=== PATIENT | male | born 1995 | race Caucasian/White ===

== ENCOUNTER 2020-03-07 21:37 | Outpatient (REF) | payer MEDICAID, SELFPAY ==
[2020-03-10 13:15] LABS: Patient Race White; SARS-CoV-2 RNA Undetected (Undetected); SARS-CoV-2 Specimen Source Nasal
== END 2020-03-07 21:57 ==
LOC: NCHCN 21:37
PROVIDERS: PCP Internal Medicine; Visit Provider Internal Medicine
DX: Z20.828 Contact with and (suspected) exposure to other viral communicable diseases (principal)
CPT/HCPCS: U0003

== ENCOUNTER 2020-08-09 09:53 | Outpatient (CLI) | payer MEDICAID, SELFPAY ==
--- NOTE | 2020-08-09 13:07 | DI.RAD_ITS ---
EXAM: XR HIP PELVIS ADULT BL CLINICAL HISTORY: BILAT HIP PAIN M25.559. TECHNIQUE: 2D digital imaging was performed. COMPARISON: No exams were available for comparison FINDINGS: BONES: No acute fracture is present. No bony destructive lesion is seen. JOINTS: No dislocation present. SOFT TISSUE: Normal. IMPRESSION: Unrmarkable radiographs of bilat hips. Unremarkable radiographs of the pelvis DATA REPOSITORY: RADIATION DOSE DELIVERED:
== END 2020-08-09 10:13 ==
PROVIDERS: PCP Internal Medicine; Visit Provider Internal Medicine
DX: M25.551 Pain in right hip (principal); M25.552 Pain in left hip
CPT/HCPCS: 73521

== ENCOUNTER 2021-02-16 22:28 | Emergency (ER) | payer MEDICAID, SELFPAY ==
--- NOTE | 2021-02-16 22:31 | ED.GENADUL_ITS ---
Discharge Plan Disposition Patient Disposition: HOME Condition: Good Discharge Details Clinical Impression: Dog bite of finger Primary Care Provider: Rosendo Cervantes ED Provider: Sohan Givens [place] Meds and New Rx's Prescriptions: New amoxicillin-pot clavulanate [Augmentin] 875-125 mg tablet 1 tab PO BID Qty: 6 RF: 0 Continued escitalopram oxalate 20 mg tablet 20 mg PO DAILY RF: 0 Discharge Instructions Instructions: Animal Bite (ED) Additional Instructions: X-ray is negative. Tetanus updated tonight. Antibiotic for 3 days for prophylaxis. Clean wound twice a day and keep covered until healed. Return to ED if increasing pain/redness/swelling/fever. Medical Decision Making X-ray was obtained and negative for fracture. Tetanus updated. Patient given dose of Augmentin and will continue for 3 days, but given superficiality of wound should be fine. Local wound care and keeping area covered discussed. Return to ED if evidence of worsening infection. HPI General Mode of arrival: ambulatory . Date/Time Provider Initiated Documentation: 02/16/21 22:31 . Limitations to Documentation: no limitations . Information obtained by: patient and RN notes reviewed . HPI Narrative: Patient presents to the ED with dog bite to his left ring finger. Injury occurred yesterday. Dog is up-to-date on all of its shots. 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 When he went to pet the dog he was bitten. Mostly scraped on the cuticle of his finger. There is some redness and drainage as well as pain. Patient otherwise without complaint. Patient last tetanus more than 5 years ago. Related Data Home Medications Medication Instructions Recorded Confirmed amoxicillin-pot clavulanate 1 tab PO BID #6 tab 02/16/21 [Augmentin] escitalopram oxalate 20 mg PO DAILY 02/16/21 02/16/21 Previous Rx's Medication Instructions Recorded amoxicillin-pot clavulanate 1 tab PO BID #6 tab 02/16/21 [Augmentin] Allergies Allergy/AdvReac Type Severity Reaction Status Date / Time Sulfa (Sulfonamide Allergy Severe Hives Unverified 02/16/21 22:34 Antibiotics) Review of Systems Narrative: As documented in HPI otherwise negative as below. Const: no fever Resp: no cough, SOB CV: no CP GI: no abdominal pain, nausea, vomiting, diarrhea Neuro: no headache PFSH Medical History No significant past medical history Surgical History No significant past surgical history Social History Smoking/Tobacco Use Status: Former Tobacco Use Smoking risk assessment performed?: Yes Alcohol Intake: current Alcohol Intake frequency: a few times a week Alcohol type: beer Drug use: Occasionally Substance use type: does not use Do you feel safe at home: Yes Do you feel safe in your relationship?: Yes Exam Narrative Exam Narrative: Const: WDWN male in NAD. HEENT: NC/AT. Normal facial exam. Eyes: Normal conjunctiva and sclera. Neck: Supple. Trachea midline. Lungs: Normal respiratory effort. Neuro: A+O x 3. Normal speech, mentation, gait. Cranial nerves II - XII grossly intact. No gross motor or sensory deficit. Ext: No C/C/E. Left ring finger with scrapes/wound to dorsal aspect along cuticle. Minimal subungal hematoma under proximal nail. Redness and swelling mild with some tenderness to the area. No wound on palmar side of finger. Skin: As above.
[2021-02-16 22:32] VITALS: BP 145/84; PULSE 85; RESP 20; TEMP 36.2; O2SAT 98
--- NOTE | 2021-02-16 22:45 | DI.RAD_ITS ---
Exam(s) XR FINGER LT RING EXAM: XR FINGER LT RING CLINICAL HISTORY: dog bite. TECHNIQUE: 2D digital imaging was performed. COMPARISON: None. FINDINGS: BONES: No acute fracture is present. No bony destructive lesion is seen. JOINTS: No dislocation present. SOFT TISSUE: Soft tissue swelling in region of nail bed. No foreign body. IMPRESSION: No evidence of acute fracture, dislocation, or subluxation. DATA REPOSITORY: RADIATION DOSE DELIVERED:
--- NOTE | 2021-02-16 23:32 | DI.VRAD_ITS ---
PROCEDURE INFORMATION: Exam: XR Left Finger(s) Exam date and time: 02/16/2021 10:46 PM Age: 26 years old Clinical indication: Other: Dog bite TECHNIQUE: Imaging protocol: XR Left fingers. Views: Minimum 2 views. COMPARISON: No relevant prior studies available. FINDINGS: Bones/joints: No fracture. No malalignment. Soft tissues: Unremarkable IMPRESSION: No acute findings. Dictated and Authenticated by: Zach nAgelo MD. Ordering:ESTEPHANIE Parry MD
[2021-02-16] MEDS: Amoxicillin 875/Clav. 125 TAB PO (23:56)
== END 2021-02-17 00:04 | disposition home or self-care (01) ==
PROVIDERS: Emergency Provider Emergency Medicine; PCP Internal Medicine
DX: S61.355A Open bite of left ring finger with damage to nail, initial encounter (principal); W54.0XXA Bitten by dog, initial encounter
CPT/HCPCS: 90471; 99283; 73140

== ENCOUNTER 2021-07-31 11:51 | Outpatient (REF) | payer OTHER, MEDICAID, SELFPAY ==
[2021-08-01 15:26] LABS: COVID-19 RT-PCR UVMMC Result Negative (Negative)
== END 2021-07-31 11:52 | disposition home or self-care (01) ==
LOC: LBN 11:51
PROVIDERS: PCP Internal Medicine; Visit Provider Nurse Practitioner Family
DX: J02.9 Acute pharyngitis, unspecified (principal); Z20.822 Contact with and (suspected) exposure to COVID-19
CPT/HCPCS: U0003

== ENCOUNTER 2021-08-25 23:21 | Outpatient (REF) | payer OTHER, MEDICAID, SELFPAY ==
[2021-08-25 20:51] LABS: Abs Immature Grans 0.01 10^3/uL (0.0-0.06); Absolute Basophil Count 0.05 10^3/uL (0.0-0.2); Absolute Lymphocyte Count 1.52 10^3/uL (1.2-3.4); Absolute Monocyte Count 0.96 10^3/uL (0.1-0.8); Basophils % 0.6; Eosinophils % 1.2; HCT 46.3 % (40.0-50.0); HGB 15.1 g/dL (13.5-17.5); Immature Grans % 0.1; Lymphocytes % 18.9; MCH 29.4 pg (27.0-33.0); MCHC 32.6 % (32.0-36.0); MCV 90 fL (80-95); MPV 9.5 fL (8.0-11.0); Monocytes % 11.9; Neutrophils % 67.3; Platelet Count 236 10^3/uL (130-400); RBC 5.14 10^6/uL (4.36-5.78); RDW 12.7 % (11.8-14.1); RDW-SD 41.6 fL; WBC 8.04 10^3/uL (4.4-10.8)
[2021-08-25 21:11] LABS: ALT 27 U/L (16-63); AST 24 U/L (15-37); Albumin 4.5 g/dL (3.4-5.0); Alkaline Phosphatase 54 U/L (46-116); BUN 13 mg/dL (7-18); Bilirubin, Total 0.6 mg/dL (0.2-1.0); Calcium 9.3 mg/dL (8.5-10.1); Chloride 101 mmol/L (98-107); Glucose 91 mg/dL (74-106); Potassium 3.8 mmol/L (3.5-5.1); Sodium 141 mmol/L (136-145)
[2021-08-25 21:18] LABS: Anion Gap 11.4 mmol/L (3-11); CO2 28.6 mmol/L (21.0-32.0)
== END 2021-08-25 23:22 | disposition home or self-care (01) ==
LOC: LBN 23:21
PROVIDERS: PCP Internal Medicine; Visit Provider Family Medicine
DX: J98.8 Other specified respiratory disorders (principal)
CPT/HCPCS: 80053; 85025

== ENCOUNTER 2022-10-25 01:47 | Outpatient (CLI) | payer OTHER, MEDICAID, SELFPAY ==
--- NOTE | 2022-10-25 | DI.RAD_ITS ---
Exam(s) XR FOOT RT COMPLETE EXAM: XR FOOT RT COMPLETE CLINICAL HISTORY: RT FOOT PAIN, M79.671. TECHNIQUE: 2D digital imaging was performed. COMPARISON: No exams were available for comparison FINDINGS: 3 views No evidence of fracture or diastasis of the Lisfranc joint. Mild hallux valgus noted. Some soft tis david swelling is noted medial to the head of the great toe metatarsal. No radiopaque foreign body. N o radiographic evidence of osteomyelitis. No obvious degenerative changes in the great toe metatarso phalangeal joint. No erosions at this level nor elsewhere in the foot. Bone density normal. No oss eous lesions. Accessory ossicle noted on the medial aspect of the foot adjacent to the navicular tuberosity. IMPRESSION: Hallux valgus. DATA REPOSITORY: RADIATION DOSE DELIVERED:
== END 2022-10-25 02:07 ==
LOC: DI 01:48
PROVIDERS: PCP Internal Medicine; Visit Provider Family Medicine
DX: M79.671 Pain in right foot; M20.11 Hallux valgus (acquired), right foot; M79.89 Other specified soft tissue disorders
CPT/HCPCS: 73630

== ENCOUNTER → 2023-02-06 01:04 | Outpatient (CLI) | payer OTHER, SELFPAY ==
--- NOTE | 2023-02-06 | DI.MRI_ITS ---
Exam(s) MR LOWER EXTREMITY RT WO EXAM: MR LOWER EXTREMITY RT WO CLINICAL HISTORY: CONTINUED PAIN, INFLAMMATION AROUND 1ST MTP JOINT, SPRAIN IN OCTOBER. TECHNIQUE: Multiplanar multisequence MRI was performed. CONTRAST MATERIAL: Noncontrast COMPARISON: Plain films 25 October 2022 FINDINGS: BONES/JOINTS: No evidence of fracture. Mild hallux valgus. Bony erosions seen at the medial 1st met atarsal head with some surrounding edema. Findings could be related to gout or possibly related to o n recent trauma. Small 1st MTP joint effusion. Remaining MTP joints unremarkable. Intertarsal tars al metatarsal joints are also unremarkable. MUSCULOTENDINOUS STRUCTURES: Visualized portion of the planar fascia is unremarkable. No tendon abno rmalities are identified. SOFT TISSUES: Apparent multiple metallic artifacts which may be related to minute metallic particles on the skin or possibly within the patient's socks. IMPRESSION: Erosion at the medial 1st metatarsal head, joint effusion and mild adjacent edema. Findings could be secondary to gout. Clinical correlation recommended. DATA REPOSITORY:
== END ==
PROVIDERS: PCP Internal Medicine; Visit Provider Podiatrist
DX: M89.8X7 Other specified disorders of bone, ankle and foot (principal)
CPT/HCPCS: 73718

== ENCOUNTER 2023-07-30 16:51 | Outpatient (REF) | payer OTHER, SELFPAY | END 2023-07-30 16:52 | disposition home or self-care (01) | LOC: LBN 16:51 | PROVIDERS: PCP Internal Medicine; Visit Provider Nurse Practitioner Family | DX: J02.9 Acute pharyngitis, unspecified (principal) | CPT/HCPCS: 87070 ==

== ENCOUNTER → 2023-09-20 15:17 | Outpatient (CLI) | payer OTHER, SELFPAY ==
--- NOTE | 2023-09-20 10:32 | DI.RAD_ITS ---
Exam(s) XR CHEST 2V PA LATERAL EXAM: XR CHEST 2V PA LATERAL CLINICAL HISTORY: S20.20XA contusion of thorax, unspecified, initial encounter, R/O Injury TECHNIQUE: 2D digital imaging was performed of the chest. Three images were obtained. PA and later al views were obtained. COMPARISON: CR CHEST 2 VIEWS PA,LAT from 02/05/2014 FINDINGS: MEDIASTINUM: Normal. HEART: Normal. PULMONARY VASCULATURE: Normal. LUNGS: Clear. PLEURAL SPACE: No pleural effusion or pneumothorax. BONE:Within normal limits for the patient's age. OTHER FINDINGS:Normal. IMPRESSION: No acute pulmonary findings. DATA REPOSITORY: RADIATION DOSE DELIVERED:
== END ==
PROVIDERS: PCP Internal Medicine; Visit Provider Physician Assistant Medical
DX: S20.20XA Contusion of thorax, unspecified, initial encounter (principal); W22.8XXA Striking against or struck by other objects, initial encounter
CPT/HCPCS: 71046

== ENCOUNTER 2024-03-26 18:10 | Emergency (ER) | payer OTHER, SELFPAY ==
[2024-03-26 18:13] VITALS: BP 139/89; PULSE 80; RESP 18; O2SAT 98
--- NOTE | 2024-03-26 18:28 | ED.GENADUL_ITS ---
Discharge Plan Disposition Patient Disposition: Home Condition: Stable Discharge Details Clinical Impression: Sprain of left knee Primary Care Provider: Bruno Spence ED Provider: Roger Taylor Home Meds and New Rx's Prescriptions: Continued acetylcysteine 600 mg capsule 600 mg PO BID alprazolam 0.5 mg tablet 0.5 mg PO DAILY bupropion HCl 300 mg tablet extended release 24 hr 300 mg PO QAM emtricitabine-tenofovir (TDF) 200-300 mg tablet 1 tab PO DAILY Discharge Instructions Instructions: Knee Sprain ED Additional Instructions: You were seen in the emergency department for your sprain of your left knee, this could possibly be a bursitis as well, please take a couple days off of work, rest, ice, compress and elevate the knee often. Please use therapeutic dosing of Tylenol (acetamenophen) & Advil (ibuprofen) in an alternating fashion as follows: Take 1000mg of Tylenol every 6 hours without missing doses- that is 4 times per day. [place] in between the Tylenol dosings, take 400-600mg of Advil also on a 6 hour schedule, that is also 4 times per day. The daily maximum dosing of Tylenol is 4000mg, and the daily maximum dosing of Advil is 2400mg. This is safe to do for weeks. Please note that some common cold medications & prescription pain medications may contain acetamenophen and you need to read OTC drug labels and factor that in to maximum daily dosings. Or take 440 mg of Aleve twice per day instead of ibuprofen I have placed you an orthopedic follow-up list please obtain a knee brace [id number] I think with some gentle compression and Velcro straps is ideal. Stand Alone Forms: Work Release Referrals: [facility] [Provider Group] Rosendo Cervantes MD [ [facility] STAFF PHYSICIAN] - Discharge Data Discharge Date/Time-TO BE ENTERED AT DEPARTURE: 03/26/24 19:18 HPI General Date/Time Provider Initiated Documentation: 03/26/24 18:17 . HPI Narrative: 29 year-old male presents to ED today by POV/ambulating with a chief complaint of L knee pain, progressive, with onset around 1130 am today. 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 Quality described as pressure in his knee that is worse at full extension and full flexion, no radiation to fall, popping, instability, endorses his knee clicks sometimes. Severity is described as m oderate. Palliating factors include nothing specific attempted. Provoking factors include nothing specific. Patient not anticoagulated. Related Data Home Medications ?Medication ?Instructions ?Recorded ?Confirmed acetylcysteine 600 mg capsule 600 mg PO BID 02/18/24 03/26/24 alprazolam 0.5 mg tablet 0.5 mg PO DAILY 02/18/24 03/26/24 bupropion HCl 300 mg 24 hr tablet, 300 mg PO QAM 02/18/24 03/26/24 extended release emtricitabine 200 mg-tenofovir 1 tab PO DAILY 02/18/24 03/26/24 disoproxil fumarate 300 mg tablet Allergies Allergy/AdvReac Type Severity Reaction Status Date / Time Sulfa (Sulfonamide Allergy Severe Hives Unverified 03/26/24 18:16 Antibiotics) General Stated Complaint: Orthopedic BEENA: 4 Review of Systems All systems reviewed & are unremarkable except as noted in HPI and below Exam Narrative Exam Narrative: GENERAL APPEARANCE: Well-nourished, non-toxic, awake and alert, atraumatic, no acute distress. SKIN: Warm, pink, dry, intact, without rashes/lesions/ulcerations. HEAD: Normocephalic, atraumatic, normal hair distribution for gender/age. EYES: Normal conjunctiva, no exudates on lids/lashes. ENT: Nares patent, no circumoral cyanosis, no facial swelling NECK: Supple, trachea midline, painless cervical ROM. LUNGS/CHEST: Non-labored respirations, normal A/P diameter, symmetrical expansion, no chest wall deformity HEART (CV/PV): No peripheral edema, no JVD. ABDOMEN: Soft, non-distended, no guarding. MSK: Normal ROM, no swelling/deformity to bilateral UEs or LEs, moving all extremities without weakness, no cyanosis, spine midline without tenderness, normal curvature, L KNEE: questionable Jose Daniel positive, no ligamentous laxity with anterior drawer or varus valgus forces, no joint line tenderness, patella mobile, no popliteal fossa tenderness, neurovascular intact distal NEURO: Mental Status AAOx4 - alert to person, place, time, events No facial droop, no forehead involvement. Motor: No focal weakness - strength 5/5 in bilateral UEs and LEs, proximal and distal, symmetric. Sensory: sensation intact to light touch globally. Gait normal: patient ambulated without ataxia into ED room. PSYCH: euthymic, cooperative, pleasant, appropriate speech Course Vital Signs Vital signs: Vital Signs Pulse 80 03/26/24 18:13 Respiratory Rate 18 03/26/24 18:13 Blood Pressure 139/89 03/26/24 18:13 Pulse Oximetry 98 03/26/24 18:13 Pulse 80 03/26/24 18:13 Respiratory Rate 18 03/26/24 18:13 Blood Pressure 139/89 03/26/24 18:13 Pulse Oximetry 98 03/26/24 18:13 Oxygen Delivery Method Room Air 03/26/24 18:13 Oxygen Flow Rate 0 03/26/24 18:13 Pain Level 2 03/26/24 18:13 Medical Decision Making This dictation utilizes [id number] dictation software and may contain unedited grammatical errors. 29 year-old male presents to ED today by POV/ambulating with a chief complaint of L knee pain, progressive, with onset around 1130 am today. 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 Quality described as pressure in his knee that is worse at full extension and full flexion, no radiation to fall, popping, instability, endorses his knee clicks sometimes. Severity is described as moderate. Palliating factors include nothing specific attempted. Provoking factors include nothing specific. Patients' medical history: Noncontributory, otherwise healthy. 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 Pertinent exam findings / vital signs include L KNEE: questionable Jose Daniel positive, no ligamentous laxity with anterior drawer or varus valgus forces, no joint line tenderness, patella mobile, no popliteal fossa tenderness, neurovascular intact distal. Differential / pathologies of concern include meniscus tear, knee sprain, unlikely fracture. Diagnostic studies of: -XR L knee-no acute pathology. Interventions of: -Recommend RICE therapy, therapeutic dosing Tylenol and ibuprofen etbs-oqe-kzoqdax knee brace, provided work note. 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 Patient verbalized understand the plan to return to ED criteria. Findings not consistent with fracture or neurovascular compromise. Disposition of sprain of left knee. Patient verbalized understanding of the plan and return to ED criteria and engaged in shared decision making. Medical Records Medical records reviewed: Yes I reviewed the patient's medical records. Imaging Data Radiologic Study: Attestation: I personally reviewed and interpreted this imaging study as follows: Imaging: X-Ray Radiologist's impression: EXAM: XR KNEE LT 3V AP,LAT,LILO CLINICAL HISTORY: L knee pain. TECHNIQUE: 2D digital imaging was performed. Three views. COMPARISON: No exams were available for comparison FINDINGS: BONES: No acute fracture is present. No bony destructive lesion is seen. JOINTS: The knee is normally aligned. No joint effusion is seen. The joint spaces are maintained. SOFT TISSUE: Normal. IMPRESSION: Normal radiographs of the left knee. Quality:SDOH Health Related Social Needs: No Data to Display PFSH All Active Problems (Updated 03/26/24 @ 19:01 by SURESH Lopez) Sprain of left knee (Acute) Dog bite of finger (Acute) Medical History No significant past medical history Surgical History No significant past surgical history Social History Smoking/Tobacco Use Status: Former Tobacco Use Quit Date: 11/14/23 Tobacco: How many years used: 10 Smoking risk assessment performed?: Yes Alcohol Intake: current Alcohol Intake frequency: a few times a week Alcohol type: beer Drug use: Occasionally Substance use type: does not use Do you feel safe at home: Yes Do you feel safe in your relationship?: Yes
[2024-03-26 19:18] VITALS: BP 153/93; PULSE 75; RESP 14; O2SAT 97
== END 2024-03-26 19:18 | disposition home or self-care (01) ==
LOC: ER 19:19
PROVIDERS: Emergency Provider Physician Assistant; PCP Family Medicine
DX: S83.92XA Sprain of unspecified site of left knee, initial encounter (principal); X50.9XXA Other and unspecified overexertion or strenuous movements or postures, initial encounter; Y93.01 Activity, walking, marching and hiking; Y92.89 Other specified places as the place of occurrence of the external cause; Y99.0 Civilian activity done for income or pay
CPT/HCPCS: 73562; 99283

== ENCOUNTER 2024-05-27 02:19 | Outpatient (CLI) | payer OTHER, SELFPAY ==
--- NOTE | 2024-05-27 06:30 | DI.MRI_ITS ---
Exam(s) MR LOWER JOINT LT WO EXAM: MR LOWER JOINT LT WO CLINICAL HISTORY: L KNEE INJURY/PAIN,tear lateral meniscus lt knee,S83.282A TECHNIQUE: Multiplanar multisequence MRI of the knee was performed. COMPARISON: CR XR KNEE LT 3V AP,LAT,LILO from 03/26/2024 FINDINGS: EFFUSION: There is a minimal amount of increased fluid in the suprapatellar bursa seen laterally. Th ere is no evidence of prominent joint effusion or Kong cyst in the popliteal fossa. MARROW:There is no evidence of fracture, bone contusion, nor osteochondral defects.. There are no si gnificant osseous lesions. PATELLOFEMORAL COMPARTMENT: The quadriceps tendon is intact. The patellar ligament is intact. There is no significant thinning of the retropatellar cartilage. No evidence of fissure nor signific ant chondral defect. No osteochondral defect at this level.There is no intraosseous signal to sugges t recent patellar dislocation. There are no patellar retinacular tears. CRUCIATE LIGAMENTS: The anterior cruciate ligament is intact.The posterior cruciate ligament is intac t. MEDIAL COMPARTMENT/MEDIAL MENISCUS: There are no tears of the medial meniscus evident.. There are no chondral defects, osteochondral defects, subarticular marrow edema, nor osteophytes evid ent. MEDIAL COLLATERAL LIGAMENT: Intact LATERAL COMPARTMENT/LATERAL MENISCUS: There is no evidence of lateral meniscal tear.There are no malick dral defects, osteochondral defects, subarticular marrow edema, nor osteophytes evident. ILIOTIBIAL BAND: Intact LATERAL COLLATERAL LIGAMENT COMPLEX: There is some fluid around the popliteus tendon sheath but no te ar of this structure. The fibular collateral ligament is intact. The biceps femoris tendon is intac t. IMPRESSION: 1. There are no meniscal tears, cruciate ligament tears, nor collateral ligament tears. There is sma ll amount of fluid around region of the popliteus tendon but there is no significant tear of this str ucture nor of the other components of the lateral collateral ligament complex. 2. No evidence of bone contusions nor significant articular cartilage loss. No osteochondral defects . 3. Patellofemoral compartment appears unremarkable. 4. Small amount of increased fluid is noted in the lateral aspect of the suprapatellar bursa/medial t o the iliotibial band. The iliotibial band itself appears unremarkable. There are no loose intra-articular bodies evident. DATA REPOSITORY:
== END 2024-05-27 02:39 ==
LOC: DI 02:19
PROVIDERS: PCP Family Medicine; Visit Provider Student in an Organized Health Care Education/Training Program
DX: S83.282A Other tear of lateral meniscus, current injury, left knee, initial encounter (principal); X58.XXXA Exposure to other specified factors, initial encounter
CPT/HCPCS: 73721

== ENCOUNTER 2024-06-04 07:10 | Day surgery (SDC) | payer OTHER, SELFPAY ==
--- NOTE | 2024-06-04 07:11 | W.ANESPRE ---
General Info Date of Service Date Performed: 06/04/24 Height: 5 ft 11 in Weight: 88.904 kg Body Mass Index (BMI): 27.3 Surgical Procedure: Operation Date: 06/04/24 08:55 Proposed Procedure Side Surgeon p Vasectomy Franky Mooney MD Meds Allergies and Home Medications Allergies Allergy/AdvReac Type Severity Reaction Status Date / Time Sulfa (Sulfonamide Allergy Severe Hives Verified 06/04/24 07:47 Antibiotics) Home Medication ?Medication ?Instructions ?Recorded alprazolam 0.5 mg tablet 0.5 mg PO DAILY 02/18/24 bupropion HCl 300 mg 24 hr tablet, 300 mg PO QAM 02/18/24 extended release Current Visit Medications: Current Medications Generic Name Dose Route Start Last Admin Trade Name Freq PRN Reason Stop Dose Admin IV Miscellaneous Supplies 1 each 06/04/24 06:00 Iv Access IV 06/04/24 23:59 DIRECTED TANISHA Sodium Chloride 0 ml 06/04/24 06:00 Normal Saline Flush 10 Ml Syr IV 06/04/24 23:59 PRN PRN Sodium Chloride 0 ml 06/04/24 06:00 Normal Saline 10 Ml Vial IJ 06/04/24 23:59 DIRECTED PRN Sterile Water 0 ml 06/04/24 06:00 Water,Injection,Sterile 10 Ml Vial IJ 06/04/24 23:59 DIRECTED PRN PFSH Active Problems Active Problems: Problem Status Onset Code Tear of lateral meniscus of left knee Acute S83.282A Dog bite of finger Acute S61.259A, W54.0XXA Medical History Medical History (Updated 06/02/24 @ 12:38 by Ruddy Richardson) Hx of fracture of toe per pt. states this was a sprain, and had a cortisone injection 2022 Hx of fracture of wrist Anxiety and depression No significant past medical history Surgical History Surgical History No significant past surgical history Tobacco Smoking/Tobacco Use Status: Former Tobacco Use Alcohol Alcohol Intake: current Alcohol intake frequency: a few times a month Alcohol type: beer Substance Use Substance use type: does not use Vital Signs and Lab Results Vital Signs Most Recent Vital Signs in EMR: Temp Pulse Resp BP Pulse Ox 36.5 C 85 16 132/84 99 06/04/24 07:33 06/04/24 07:33 06/04/24 07:33 06/04/24 07:33 06/04/24 07:33 Lab Results Blood Type / Crossmatch: No Data to Display Complete Blood Count: No Data to Display Complete Metabolic Panel: No Data to Display Liver Function Panel: No Data to Display Coagulation Panel: No Data to Display Cardiac Panel: No Data to Display Arterial Blood Gas: No Data to Display Venous Blood Gas: No Data to Display Pancreas Panel: No Data to Display Thyroid Panel: No Data to Display Infectious Disease: No Data to Display Blood Cultures: No Data to Display Toxicology Panel: No Data to Display Anesthesia Assessment and Plan Anesthesia History Personal History: No History of Anesthesia Complications Family History: No Family History of Anesthesia Complications Exercise Tolerance Exercise Tolerance: Metabolic Equivalents>4 Cardiac & Pulmonary Exam Cardiac Exam: Normal S1/S2 Heart Sounds Pulmonary Exam: Clear Bilateral Breath Sounds Implantable Cardiac Device Does patient have a Pacemaker or an ICD?: No Airway Exam Known Difficult Airway: No Mallampati Class: 2 Mouth Opening: Normal (> 3cm) Thyromental Distance: Greater than 3 cm Neck Range of Motion: Full ROM Neck Circumference: Normal Teeth Condition: Normal Dentition ASA Classification ASA Score: ASA 2 Emergency Case?: No NPO Status NPO Status: NPO Clears >2 hours, Solids >8 hours Anesthesia Plan Resuscitation Status: Full Code Anesthesia Technique: General Anesthesia Airway Planned: Natural Airway Monitors Used: Standard Monitors Preoperative Comments:: 29 yo male for vasectomy. Sig PMHx: anxiety/depression (xanax this AM), former smoker, occ EtOH. Denies GERD. Approp NPO.
[2024-06-04 07:14] VITALS: BMI 27.3
[2024-06-04 07:33] VITALS: BP 132/84; PULSE 85; RESP 16; TEMP 36.5; O2SAT 99
[2024-06-04] MEDS: Lactated Ringers 1,000 ML 80 ML IV (07:55)
--- NOTE | 2024-06-04 08:45 | W.PM.HP.N ---
Date of service: 06/04/24 Time of Service: 08:45 Assessment and Plan Assessment and plan (1) Encounter for vasectomy: Status: Acute Assessment and plan: We will move ahead with vasectomy. We will give sedation along with local anesthetic for this procedure. We discussed potential side effects such as bleeding, infection, chronic epididymal orchitis and recanalization of the vas was. We cautioned the patient that he would not be considered sterile until he brings a semen sample back to the office and we identified the absence of sperm. The sample should be provided in about 12 weeks. History of Present Illness History of Present Illness Chief Complaint: Elective sterilization Narrative: This is a 29-year-old gentleman who comes in today for a vasectomy. He currently has 1 child. He is not involved in a long-term relationship at this point, but he is adamant that he is not interested in additional pregnancies. He has no bleeding disorders. He takes no and the coagulants. He has known known issues with wound healing. Review of Systems Narrative: No fevers or chills No vision change or dysphasia No diabetes or thyroid dysfunction No shortness of breath, cough or hemoptysis No chest pain or palpitations No nausea, vomiting, hepatitis, ulcers, jaundice, diarrhea or constipation Anxiety. No seizures, strokes or peripheral neuropathy No bleeding disorders or anemia No gout PFSH All Active Problems (Updated 06/04/24 @ 08:49 by Franky Mooney MD) Encounter for vasectomy (Acute) Tear of lateral meniscus of left knee (Acute) Dog bite of finger (Acute) Medical History (Updated 06/04/24 @ 08:49 by Franky Mooney MD) Hx of fracture of toe per pt. states this was a sprain, and had a cortisone injection 2022 Hx of fracture of wrist Anxiety and depression No significant past medical history Surgical History No significant past surgical history Social History Smoking/Tobacco Use Status: Former Tobacco Use Quit Date: 11/14/23 Tobacco: How many years used: 10 Smoking risk assessment performed?: Yes Alcohol Intake: current Alcohol Intake frequency: a few times a month Alcohol type: beer Substance use type: does not use Housing: house Do you feel safe at home: Yes Do you feel safe in your relationship?: Yes Meds Allergies and Home Medications Allergies Allergy/AdvReac Type Severity Reaction Status Date / Time Sulfa (Sulfonamide Allergy Severe Hives Verified 06/04/24 07:47 Antibiotics) Home Medications ?Medication ?Instructions ?Recorded ?Confirmed ?Type alprazolam 0.5 mg tablet 0.5 mg PO DAILY 02/18/24 06/04/24 History bupropion HCl 300 mg 24 hr tablet, 300 mg PO QAM 02/18/24 06/04/24 History extended release Exam Const General: cooperative and anxious Neck Neck: supple Resp Effort & Inspection: normal respiratory effort Auscultation: clear to auscultation bilaterally Cardio Rate: regular rate Rhythm: regular rhythm GI Palpation: soft and no masses Scrotum: scrotum normal Testes: normal Neuro General: patient alert, patient awake and patient oriented x3 Results Last Vital Signs Temp 36.5 C 06/04/24 07:33 Pulse 85 06/04/24 07:33 Resp 16 06/04/24 07:33 BP 132/84 06/04/24 07:33 Pulse Ox 99 06/04/24 07:33 Time Spent Time spent with Patient: <40 minutes Time was spent: other
[2024-06-04] MEDS: Bupivacaine 0.5% Pres-Free 30 ML VIAL (09:29)
[2024-06-04 09:42] VITALS: BP 117/74; PULSE 78; RESP 16; TEMP 36.3; O2SAT 98
--- NOTE | 2024-06-04 09:46 | W.PM.DSUDISC ---
Date of service: 06/04/24 Discharge Plan Disposition Patient Disposition: Home Condition: Stable Discharge Details Reason For Visit: vasectomy Attending Provider: Franky Mooney Primary Care Provider: Bruno Spence Home Meds and New Rx's Prescriptions: No Action alprazolam 0.5 mg tablet 0.5 mg PO DAILY bupropion HCl 300 mg tablet extended release 24 hr 300 mg PO QAM Discharge Instructions Additional Instructions: wear supportive undergarments for minimum of 48 hours ice packs to scrotum (on 30 min off 30 min while awake) for 48 hours minimum bring semen sample to office 12 weeks Stand Alone Forms: Anesthesia Discharge Inst., Zack Nowak ([facility]), Vinicio'laxmi Vasectomy Post-op Referrals: Franky Mooney MD [ [facility] STAFF PHYSICIAN] - Activity:: no straining or lifting over 10 pounds for minimum 48 hours Shower/Bathe:: 24 hours Diet:: As Tolerated DS: Diagnosis Discharge Diagnosis (1) Encounter for vasectomy: Status: Acute
--- NOTE | 2024-06-04 09:49 | ROE_ITS ---
Operative Note Operative Note PRE-OP DIAGNOSIS: Elective sterilization POST-OP DIAGNOSIS: same PROCEDURE: vasectomy SURGEON: Franky Mooney ANESTHESIA TYPE: Local By Surgeon and General:No Airway Refer to Anesthesia Record ESTIMATED BLOOD LOSS: 5 PATHOLOGY: none sent COMPLICATIONS: None Patient was transported to: same day Patient's condition: stable Implants: none Indications: This is a 29-year-old gentleman who has 1 child. He is not currently in a long- term relationship, but he is adamant that he is not interested in additional pregnancies. He presents for vasectomy. Findings: Normal anatomy Procedure Description: The patient was brought to the operating room on 06/04/2024. He is placed in the supine position. His genitalia is prepped and draped sterilely. I began on the patient's right side and isolated the vas deferens up against the scrotal skin. The skin was infiltrated with half percent Marcaine without epinephrine. The skin was then opened using a scalpel free technique. The vas was grasped and ring forceps and dissected free from the surrounding tissue. A 2 cm section of's was then excised. Each cut end of the vas was cauterized using the Bovie. The more proximal end of the vas was buried back beneath the adventitia using a simple interrupted 4-0 chromic suture. The same procedure was then performed on the patient's left side. Again the 2 cm section of vas was excised. Each cut end of the vas was cauterized with the Bovie. The more proximal end of the vas was buried beneath the adventitia with a simple interrupted 4-0 chromic suture. Neither of the vas specimens were sent to pathology. This is the current recommendation of the [facility]. Each incision was then inspected and no active bleeding was identified. The skin was closed with skin glue. A fluff dressing followed by a scrotal support were then applied. The patient tolerated the procedure well with no complications. He was taken back to the day surgery unit in stable condition. Date of Procedure: 06/04/24
--- NOTE | 2024-06-04 09:55 | W.ANESPOSTOP ---
Postoperative Evaluation Date, Time and Location Date Performed: 06/04/24 Time Performed: 09:55 Patient Location: Day Surgery Unit Vital Signs Most Recent Imported Vital Signs: Most Recent Vital Signs Temp Pulse Resp BP Pulse Ox 36.3 C L 78 16 117/74 98 06/04/24 09:42 06/04/24 09:42 06/04/24 09:42 06/04/24 09:42 06/04/24 09:42 Pain Score Most Recent Pain Score: Most Recent Pain Score Pain Level 0 06/04/24 09:42 Assessment Mental Status: Awake (Alert & Oriented to Patient Baseline) Airway and Respiratory Function: Patent airway with normal (patient baseline) respiratory exam Cardiovascular Function: Hemodynamically Stable Hydration Status: Adequately Hydrated Nausea & Vomiting: No Nausea or Vomiting Pain: Pt. Denies Any Pain Peripheral Nerve Block: Patient did not receive a nerve block
[2024-06-04 10:10] VITALS: BP 136/95; PULSE 79; RESP 16; TEMP 36.2; O2SAT 98
== END 2024-06-04 10:57 | disposition home or self-care (01) ==
PROVIDERS: PCP Family Medicine; Visit Provider Urology
PROC: (CPT 55250; principal; 2024-06-04 08:45)
DX: Z30.2 Encounter for sterilization (principal)
CPT/HCPCS: 55250; J0665; J1100; J1885; J2003; J2250; J2405; J2704

== ENCOUNTER 2024-10-24 18:25 | Emergency (ER) | payer OTHER, SELFPAY ==
[2024-10-24 18:26] VITALS: BP 133/83; PULSE 91; RESP 18; TEMP 36.6; O2SAT 98
--- NOTE | 2024-10-24 18:35 | W.ED.GENAD ---
Discharge Plan Disposition Patient Disposition: Home Discharge Details Clinical Impression: Concussion Primary Care Provider: Bruno Spence ED Provider: Coretta Ivy Home Meds and New Rx's Prescriptions: No Action tramadol 50 mg tablet 50 mg PO Q6H PRN (Reason: pain) Qty: 12 0RF Rx Instructions: may take along with NSAIDS/Tylenol methylphenidate HCl 10 mg tablet 10 mg PO BID alprazolam 0.5 mg tablet 0.5 mg PO DAILY bupropion HCl 300 mg tablet extended release 24 hr 300 mg PO QAM Discharge Instructions Instructions: Concussion, Adult ED Additional Instructions: Please call your primary care provider first thing Saturday to schedule follow-up appointment for management of your concussion/clearance to return to sports Your symptoms are most consistent with a concussion. There is no indication at this time for head CT. Please stay well-hydrated and eat regular meals. Get plenty of rest. Avoid screen time for the first 48 hours. Avoid strenuous activities or those that may cause repeat head injury, this may lead to second impact syndrome. May use Tylenol or ibuprofen as needed for discomfort. Return to emergency care if you develop new severe headache, balance problems, uncontrollable vomiting, vision changes, or if you are very worried you need to be rechecked again immediately Stand Alone Forms: Work Release HPI General Date/Time Provider Initiated Documentation: 10/24/24 18:33. HPI Narrative: Benjamin is a 1-year-old male who presents to the emergency department for evaluation of head injury. Reports he sustained head injury today at 1400 hrs. while playing hide and seek with his child, collided with a branch. Denies loss of consciousness. Has had a persistent frontal headache that is dull, radiating around the top of the scalp. Headache is persistent despite p.o. ketorolac use and rest this afternoon. Denies associated dizziness, vision changes, bleeding from nose or ears, dental damage, neck pain, back pain, difficulty breathing, chest pain, weakness/pain in arms or legs, loss of bowel or bladder function, nausea/vomiting, photophobia or phonophobia. Denies anticoagulation, history of bleeding disorders, liver problems, or clotting problems. Denies previous concussions. 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 PMH significant for tinnitus; reports occasional fluctuations in tinnitus intensity. Related Data Home Medications ?Medication ?Instructions ?Recorded ?Confirmed alprazolam 0.5 mg tablet 0.5 mg PO DAILY 02/18/24 10/24/24 bupropion HCl 300 mg 24 hr tablet, 300 mg PO QAM 02/18/24 10/24/24 extended release tramadol 50 mg tablet 50 mg PO Q6H PRN pain #12 tabs 06/04/24 10/24/24 Held on 10/24/24. Instructions: Pt Stopped/Never Started methylphenidate HCl 10 mg tablet 10 mg PO BID 07/13/24 10/24/24 Previous Rx's ?Medication ?Instructions ?Recorded tramadol 50 mg tablet 50 mg PO Q6H PRN pain #12 tabs 06/04/24 Held on 10/24/24. Instructions: Pt Stopped/Never Started Allergies Allergy/AdvReac Type Severity Reaction Status Date / Time Sulfa (Sulfonamide Allergy Severe Hives Verified 10/24/24 18:30 Antibiotics) General Stated Complaint: Headache BEENA: 4 Exam Narrative Exam Narrative: General Appearance: Normal. Patient is alert and oriented, no acute distress. Vital signs: Within normal limits. HEENT: Head: Atraumatic. No scalp tenderness/bogginess. No cuts or bruising. PERRL, EOMs intact. No Costa sign or raccoon eyes. Dental damage noted. Eyes: EOMI. ENT: No abnormalities. Respiratory: Easy work of breathing, able to speak in full sentences Neck: No C-spine step-off/tenderness/deformity. Full range of motion. Skin: Warm and dry, no rash. Neurological: CN II-XII intact, normal finger to finger, finger-nose, rapid alternating movements, [id number], gait, Romberg, tandem gait. No motor or sensory deficits. Psychiatric: Normal. Course Vital Signs Vital signs: Vital Signs Temperature 36.6 C 10/24/24 18: Pulse 91 H 10/24/24 18: Respiratory Rate 18 10/24/24 18: Blood Pressure 133/83 10/24/24 18: Pulse Oximetry 98 10/24/24 18: Temperature 36.6 C 10/24/24 18: Temperature Source Oral 10/24/24 18: Pulse 91 H 10/24/24 18: Respiratory Rate 18 10/24/24 18:26 Blood Pressure 133/83 10/24/24 18:26 Pulse Oximetry 98 10/24/24 18:26 Oxygen Delivery Method Room Air 10/24/24 18:26 Oxygen Flow Rate 0 10/24/24 18:26 Pain Level 1 10/24/24 18:26 Medical Decision Making Initial Assessment: 29-year-old male with headache post head injury. No loss of consciousness, dizziness, vision changes, bleeding, dental damage, neck pain, back pain, difficulty breathing, weakness, or bowel/bladder control issues. Normal neurological exam. Concussion diagnosis confirmed. No intracranial hemorrhage signs, head CT scan unnecessary based on Nexus criteria. ED Course: - Neurological exam performed, no abnormalities noted. - Concussion diagnosis confirmed. No head CT indicated based on Nexus criteria. - Advised to avoid activities that could lead to another head injury. - Recommended Tylenol or ibuprofen for pain. - Advised to maintain sleep, hydration, regular meals. - Gentle exercises like walking permissible. - Limit screen time for 48 hours. - Monitor for severe headache, vomiting, vision changes, balance problems, hearing loss. - Work note provided for a week off. - Discharge home with return precautions. Final Assessment: Concussion diagnosis confirmed. No signs of intracranial hemorrhage again need for head CT at this time. No other injuries noted. Advised on pain management, activity restrictions, and follow-up care. Clinical Impression: - Concussion Disposition: - Discharge home with return precautions. - Follow-Up: Call PCP first thing Saturday morning to get checked out. Work note provided for one week off of work Patient Education: Advised to avoid activities that could lead to another head injury. Recommended Tylenol or ibuprofen for pain. Advised to maintain sleep, hydration, regular meals. Gentle exercises like walking permissible. Limit screen time for 48 hours. Monitor for severe headache, vomiting, vision changes, balance problems, hearing loss. Patient is agreeable with plan of care MDM Components Evaluation: - Number of Differential Diagnoses or Management Options: Concussion - Amount and Complexity of Data Reviewed: Neurological exam, Nexus criteria - Risk of Complication and Morbidity or Mortality: Risk of second impact syndrome, fatal brain swelling due to a concussion on top of a concussion. Patient consented to the use of GARY PFSH All Active Problems (Updated 10/24/24 @ 18:52 by Coretta Alanis) Concussion (Acute) Acquired talipes planus (Acute) ADHD (attention deficit hyperactivity disorder) (Acute) Anxiety and depression (Chronic) Tear of lateral meniscus of left knee (Acute) Dog bite of finger (Acute) Medical History (Updated 10/24/24 @ 18:52 by Coretta Alanis) Tobacco dependence Ingrown toenail Hx of fracture of toe per pt. states this was a sprain, and had a cortisone injection 2022 Hx of fracture of wrist No significant past medical history Surgical History (Updated 06/19/24 @ 15:40 by Franky Mooney MD) H/O vasectomy No significant past surgical history Social History Smoking/Tobacco Use Status: Former Tobacco Use Quit Date: 11/14/23 Tobacco: How many years used: 10 Smoking risk assessment performed?: Yes Alcohol Intake: current Alcohol Intake frequency: a few times a month Alcohol type: beer Substance use type: does not use Housing: house Do you feel safe at home: Yes Do you feel safe in your relationship?: Yes
[2024-10-24 18:58] VITALS: BP 133/83; PULSE 91; RESP 18; TEMP 36.6; O2SAT 98
== END 2024-10-24 18:59 | disposition home or self-care (01) ==
LOC: ER 19:04
PROVIDERS: Emergency Provider Nurse Practitioner Family; PCP Family Medicine
DX: S06.0X0A Concussion without loss of consciousness, initial encounter (principal); W22.8XXA Striking against or struck by other objects, initial encounter; Y93.89 Activity, other specified; Z87.891 Personal history of nicotine dependence
CPT/HCPCS: 99283

== ENCOUNTER 2024-12-02 19:31 | Outpatient (REF) | payer OTHER, SELFPAY ==
[2024-12-03 18:58] LABS: Hepatitis C Ab w Rflx HCV PCR Negative (Negative)
[2024-12-03 19:03] LABS: HIV-1/2 Ag & Ab Screen Negative (Negative)
[2024-12-04 11:43] LABS: Syphilis Serology (RPR) Negative (Negative)
[2024-12-04 11:47] LABS: Chlamydia Result Negative (Negative); GC Result Negative (Negative)
== END 2024-12-02 19:32 | disposition home or self-care (01) ==
LOC: NCHCN 19:31
PROVIDERS: PCP Family Medicine; Visit Provider Physician Assistant
DX: Z11.3 Encounter for screening for infections with a predominantly sexual mode of transmission (principal)
CPT/HCPCS: 86803; 87340; 87389; 87491; 87591; 86592

== ENCOUNTER 2025-01-11 03:27 | Outpatient (CLI) | payer OTHER, SELFPAY ==
--- NOTE | 2025-01-11 13:25 | DI.RAD_ITS ---
Exam(s) XR FOOT RT COMPLETE EXAM: XR FOOT RT COMPLETE CLINICAL HISTORY: Right foot pain,m79.671. TECHNIQUE: 2D digital imaging was performed. Three views. COMPARISON: CR XR FOOT LT COMPLETE from 01/11/2025 FINDINGS: BONES: No acute fracture is present. No bony destructive lesion is seen. There is an ossicle adjacent to the the navicular. JOINTS: No dislocation present. There is [id number] 1st metatarsal varus and hallux valgus. No significant narrowing of the 1st MTP joint. There is minimal periarticular spurring. Plantar arch is maintained. SOFT TISSUE: Normal. IMPRESSION: [id number] 1st metatarsal varus and hallux valgus. DATA REPOSITORY: RADIATION DOSE DELIVERED:
--- NOTE | 2025-01-11 13:35 | DI.RAD_ITS ---
Exam(s) XR FOOT LT COMPLETE EXAM: XR FOOT LT COMPLETE CLINICAL HISTORY: pain lt foot, m79.672. TECHNIQUE: 2D digital imaging was performed. Three views. COMPARISON: MR MR LOWER EXTREMITY RT WO from 02/06/2023 FINDINGS: BONES: No acute fracture is present. No bony destructive lesion is seen. There is an accessory navicular. JOINTS: No dislocation present. There are no significant degenerative changes. Plantar arch is maintained. SOFT TISSUE: Normal. IMPRESSION: Unremarkable radiographs of the left foot. DATA REPOSITORY: RADIATION DOSE DELIVERED:
== END 2025-01-11 03:47 ==
PROVIDERS: PCP Family Medicine; Visit Provider Podiatrist
DX: M79.671 Pain in right foot (principal); M79.672 Pain in left foot; M20.11 Hallux valgus (acquired), right foot
CPT/HCPCS: 73630